=== PATIENT | male | born 1980 | race Caucasian/White ===

== ENCOUNTER 2017-11-20 18:55 | Emergency (ER) | payer OTHER ==
[2017-11-20 19:08] VITALS: BMI 25.0
[2017-11-20 19:10] VITALS: BP 152/66; PULSE 100; RESP 16; TEMP 97; O2SAT 99
[2017-11-20] MEDS ORDERED: Sodium Chloride 0.9% 1,000 ML IV STA (20:01)
--- NOTE | 2017-11-20 20:10 | ED PDOC ---
HPI: Abdomen Time Seen by Provider: 11/20/17 19:46 Chief Complaint (Nursing): Abdominal Pain Chief Complaint (Provider): Vomiting/diarrhea History Per: Patient History/Exam Limitations: no limitations Onset/Duration Of Symptoms: Days (2) Additional Complaint(s): Pt reports multiple episodes of nonbloody vomiting and nonbloody diarrhea X 2 days, associated with cramp abdominal pain. Denies fever, CP, SOB, urinary symptoms. + Sick contacts (children) at home. Past Medical History Reviewed: Nursing Documentation, Vital Signs Vital Signs: Last Vital Signs Temp 97.0 F L 11/20/17 19:08 Pulse 100 H 11/20/17 19:08 Resp 16 11/20/17 19:08 BP 152/66 H 11/20/17 19:08 Pulse Ox 99 11/20/17 22:40 - Medical History PMH: No Chronic Diseases - Surgical History Surgical History: No Surg Hx - Family History Family History: States: Unknown Family Hx - Living Arrangements Living Arrangements: With Family - Social History Current smoker - smoking cessation education provided: No Alcohol: None - Home Medications Home Medications: Ambulatory Orders Medication Instructions Recorded Dicyclomine [Dicyclomine HCl] 10 mg PO Q6 PRN #10 cap 11/20/17 Ibuprofen [Motrin Tab] 600 mg PO Q6 PRN #15 tab 11/20/17 Ondansetron [Zofran] 4 mg PO Q6H PRN #10 tab 11/20/17 - Allergies Allergies/Adverse Reactions: Allergies Allergy/AdvReac Type Severity Reaction Status Date / Time No Known Allergies Allergy Verified 11/20/17 19:08 Review of Systems Constitutional: Negative for: Fever, Chills Cardiovascular: Negative for: Chest Pain, Palpitations Respiratory: Negative for: Cough, Shortness of Breath Gastrointestinal: Positive for: Nausea, Vomiting, Abdominal Pain, Diarrhea. Negative for: Melena, Hematochezia, Hematemesis Genitourinary Male: Negative for: Dysuria, Hematuria Musculoskeletal: Negative for: Back Pain Skin: Negative for: Rash, Lesions Neurological: Negative for: Weakness, Numbness, Headache, Dizziness Physical Exam - Reviewed Nursing Documentation Reviewed: Yes Vital Signs Reviewed: Yes - Physical Exam Appears: Positive for: Uncomfortable Skin: Positive for: Normal Color, Warm, Dry Eye Exam: Positive for: Normal appearance, EOMI, PERRL Neck: Positive for: Normal Cardiovascular/Chest: Positive for: Regular Rate, Rhythm Respiratory: Positive for: Normal Breath Sounds. Negative for: Rales, Rhonchi, Wheezing Gastrointestinal/Abdominal: Positive for: Bowel Sounds, Soft, Tenderness ( Epigastric). Negative for: Distended, Guarding, Rebound Back: Positive for: Normal Inspection Extremity: Positive for: Normal ROM Neurologic/Psych: Positive for: Alert, bathing suit maker II-XII, Oriented - Laboratory Results Result Diagrams: 11/20/17 20:34 11/20/17 20:34 - ECG O2 Sat by Pulse Oximetry: 99 Medical Decision Making Medical Decision Makin yo male with vomiting, diarrhea and abdominal pain. - labs - abdominal ultrasound - IVF - Zofran - Dilaudid Disposition - Clinical Impression Clinical Impression: Abdominal pain, Dehydration - Disposition Referrals: Dani Taveras MD [Primary Care Provider] - Disposition: Transfer of Care Disposition Time: 21:00 Condition: STABLE Additional Instructions: Drink plenty of fluids, return to ER for any worse or new symptoms. Take medications as needed and directed. Prescriptions: Dicyclomine [Dicyclomine HCl] 10 mg PO Q6 PRN #10 cap PRN Reason: Gi Distress Ibuprofen [Motrin Tab] 600 mg PO Q6 PRN #15 tab PRN Reason: Pain, Moderate (4-7) Ondansetron [Zofran] 4 mg PO Q6H PRN #10 tab PRN Reason: Nausea/Vomiting Instructions: Dehydration (ED), Gastroenteritis (ED) Forms: [employer] (Turkmen) Patient Signed Over To: Michael Castellanos III
[2017-11-20 20:39] LABS: BASO % 0.1 % (0.0-2.0); EOS % 0.2 % (0.0-4.0); HEMOGLOBIN 16.9 g/dL (12.0-18.0); LYMPH # 0.2 K/uL (1.0-4.3); MEAN CELL VOLUME 87.8 fl (80.0-94.0); MEAN CORPUSCULAR HGB CONC 34.2 g/dL (33.0-37.0); MEAN PLATELET VOLUME 8.7 fl (7.2-11.7); MONO # 0.5 K/uL (0.0-0.8); MONO % 4.3 % (0.0-10.0); NEUT # 10.7 K/uL (1.8-7.0); NEUT % 93.4 % (50.0-75.0); PLATELET COUNT 245 K/uL (130-400); RBC 5.62 Mil/uL (4.40-5.90); RED CELL DISTRIBUTION WIDTH 13.4 % (11.5-14.5); WHITE BLOOD COUNT 11.5 K/uL (4.8-10.8)
[2017-11-20 20:48] LABS: ALB/GLOB RATIO 1.2 (1.0-2.1); ALBUMIN 4.9 g/dL (3.5-5.0); CALCIUM 10.1 mg/dL (8.4-10.2); GFR AFRICAN-AMERICAN > 60; GFR NON-AFRICAN AMERICAN > 60; LIPASE 75 U/L (23-300)
[2017-11-20 20:49] LABS: PROTHROMBIN TIME 12.3 Seconds (9.8-13.1)
[2017-11-20 20:50] LABS: ALT/SGPT 30 U/L (21-72); AST/SGOT 28 U/L (17-59); BLOOD UREA NITROGEN 22 mg/dl (9-20); INR 1.1 (0.9-1.2)
--- NOTE | 2017-11-20 21:15 | ED PDOC ---
- Laboratory Results Result Diagrams: 11/20/17 20:34 11/20/17 20:34 - ECG O2 Sat by Pulse Oximetry: 99 Medical Decision Making Medical Decision Making: recd pending US abd and re-eval TECHNIQUE: Real-time ultrasound of the right upper quadrant with image documentation. COMPARISON: No relevant prior studies available. FINDINGS: Liver: Unremarkable. No intrahepatic bile duct dilation. Gallbladder: Unremarkable. No gallstones. Common bile duct: Measures up to 3 mm. Pancreas: Unremarkable as visualized. Right kidney: Unremarkable. No stones. No hydronephrosis. IMPRESSION: No evidence of cholelithiasis. Thank you for allowing us to participate in the care of your patient. Dictated and Authenticated by: Matt Gallegos 11/20/2017 9:24 PM Eastern Time ([place] & [place]) ------- re-eval at 1010p reveals improved symptoms. Denies focal abd pain, mostly crampy now but better. Feels hungry and thirsty, tolerated PO juice. Return to ER for any worse or new symptoms. Disposition Counseled Patient/Family Regarding: Studies Performed, Diagnosis, Need For Followup, Rx Given - Clinical Impression Clinical Impression: Abdominal pain, Dehydration - POA Present On Arrival: None - Disposition Referrals: Dani Taveras MD [Primary Care Provider] - Disposition: Routine/Home Disposition Time: 22:20 Condition: STABLE Additional Instructions: Drink plenty of fluids, return to ER for any worse or new symptoms. Take medications as needed and directed. Prescriptions: Dicyclomine [Dicyclomine HCl] 10 mg PO Q6 PRN #10 cap PRN Reason: Gi Distress Ibuprofen [Motrin Tab] 600 mg PO Q6 PRN #15 tab PRN Reason: Pain, Moderate (4-7) Ondansetron [Zofran] 4 mg PO Q6H PRN #10 tab PRN Reason: Nausea/Vomiting Instructions: Dehydration (ED), Gastroenteritis (ED) Forms: [employer] (Swedish)
[2017-11-20 21:19] LABS: BANDS 5 % (0-2); LYMPHOCYTE 1 % (20-50); MONOCYTE 4 % (0-10); NEUTROPHIL 88 % (42-75); PLATELET ESTIMATE NORMAL (NORMAL); REACTIVE LYMPHOCYTES 2 % (0-0); TOTAL CELLS COUNTED 100
--- NOTE | 2017-11-21 09:47 | US ---
HISTORY: Epigastric pain COMPARISON: None. TECHNIQUE: Sonographic evaluation of the right upper quadrant of the abdomen. FINDINGS: LIVER: Measures 14.4 cm in length. Normal echogenicity of the liver parenchyma. No mass. No intrahepatic bile duct dilatation. GALLBLADDER: Unremarkable. No gallstones. COMMON BILE DUCT: Measures 2.7 mm. No stones. No dilatation. PANCREAS: Unremarkable as visualized. No mass. No ductal dilatation. RIGHT KIDNEY: Measures 10.4 x 4.5 x 4.4 cm in length. Normal echogenicity. No calculus, mass, or hydronephrosis. AORTA: No aneurysmal dilatation. IVC: Unremarkable. OTHER FINDINGS: None . IMPRESSION: No evidence of cholelithiasis or cholecystitis. Preliminary report was submitted by [facility].
== END 2017-11-20 22:42 | disposition home or self-care (01) ==
LOC: H.ER 18:55
DX: E86.0 Dehydration (principal); K52.9 Noninfective gastroenteritis and colitis, unspecified
CPT/HCPCS: 76705; 80053; 83690; 85025; 85610; 85730; 87804; 96374; 99282; J1170; J2405; J7040